=== PATIENT | female | born 1975 | race Asian ===

== ENCOUNTER 2017-01-25 19:55 | Emergency (ER) | payer OTHER ==
[~2017-01-25] VITALS: Ht 157.5 cm; Wt 90.7 kg
[~2017-01-25 19:55] MED LIST: CLOBETASOL0.051 TOP; HYDR-2748 PO; LYRICA150 MG PO; SAVELLA50 MG PO; TRAM50TA PO; ZANAFLEX4 M1 PO
[2017-01-25 21:34] LABS: PLATELET COUNT 220 K/uL (152-353)
[2017-01-25 21:45] LABS: POTASSIUM 3.5 mmol/L (3.6-5.2); SODIUM 131 mmol/L (136-145)
[2017-01-25 22:24] VITALS: BP 131/857
== END 2017-01-25 22:26 | disposition home or self-care (01) ==
LOC: ED 19:55
DX: J01.00 Acute maxillary sinusitis, unspecified (principal)
CPT/HCPCS: 36415; 80053; 85027; 87081; 87804; 87880; 96372; 99283; J0696; J1100

== ENCOUNTER 2017-12-01 09:54 | Emergency (ER) | payer OTHER ==
[~2017-12-01] VITALS: Ht 157.5 cm; Wt 90.3 kg
[2017-12-01 11:00] VITALS: TEMP 98.2
[2017-12-01 12:00] VITALS: BP 136/72
== END 2017-12-01 12:03 | disposition home or self-care (01) ==
LOC: ED 09:54
DX: M62.830 Muscle spasm of back (principal)
CPT/HCPCS: 96372; 99283; J1885; J2360

== ENCOUNTER 2018-05-08 09:12 | Outpatient (CLI) | payer OTHER ==
[~2018-05-08] VITALS: Ht 157.5 cm; Wt 97.5 kg
== END 2018-05-08 19:08 | disposition home or self-care (01) ==
LOC: INF 09:12
DX: D50.8 Other iron deficiency anemias (principal)
CPT/HCPCS: 96365; J2916

== ENCOUNTER 2018-05-14 12:58 | Outpatient (CLI) | payer OTHER ==
[~2018-05-14] VITALS: Ht 157.5 cm; Wt 97.5 kg
== END 2018-05-14 21:24 | disposition home or self-care (01) ==
LOC: INF 12:58
DX: D50.8 Other iron deficiency anemias (principal)
CPT/HCPCS: 96365; J2916

== ENCOUNTER 2018-05-21 09:21 | Outpatient (CLI) | payer OTHER ==
[~2018-05-21] VITALS: Ht 157.5 cm; Wt 97.5 kg
== END 2018-05-21 22:48 | disposition home or self-care (01) ==
LOC: INF 09:21
DX: D50.9 Iron deficiency anemia, unspecified (principal)
CPT/HCPCS: 85014; 85018; 96365; J2916

== ENCOUNTER 2018-05-29 08:45 | Outpatient (CLI) | payer OTHER ==
[~2018-05-29] VITALS: Ht 157.5 cm; Wt 97.5 kg
== END 2018-05-29 19:43 | disposition home or self-care (01) ==
LOC: INF 08:45
DX: D50.8 Other iron deficiency anemias (principal)
CPT/HCPCS: 85014; 85018; 96365; J2916

== ENCOUNTER 2018-06-11 08:43 | Outpatient (CLI) | payer OTHER ==
[~2018-06-11] VITALS: Ht 157.5 cm; Wt 97.5 kg
== END 2018-06-11 23:10 | disposition home or self-care (01) ==
LOC: INF 08:43
DX: D50.8 Other iron deficiency anemias (principal)
CPT/HCPCS: 36591; 85014; 85018; 96365; J2916

== ENCOUNTER 2018-06-25 13:49 | Outpatient (CLI) | payer OTHER ==
[~2018-06-25] VITALS: Ht 157.5 cm; Wt 97.5 kg
== END 2018-06-25 19:33 | disposition home or self-care (01) ==
LOC: INF 13:49
DX: D50.8 Other iron deficiency anemias (principal)
CPT/HCPCS: 36591; 85014; 85018; 96365; J2916

== ENCOUNTER 2018-11-27 15:08 | Outpatient (CLI) | payer OTHER | END 2018-11-27 19:05 | disposition home or self-care (01) | LOC: LABW 15:08 | DX: M25.561 Pain in right knee (principal); H16.223 Keratoconjunctivitis sicca, not specified as Sjogren's, bilateral; M06.4 Inflammatory polyarthropathy; R76.0 Raised antibody titer; Z79.899 Other long term (current) drug therapy | CPT/HCPCS: 36415; 85651; 86140; 86160; 86480; 86704; 86706; 86708; 87350; 87522; 87535; G0432 ==

== ENCOUNTER 2018-12-17 12:47 | Outpatient (CLI) | payer OTHER | END 2018-12-17 20:38 | disposition home or self-care (01) | LOC: INF 12:47 | DX: E86.0 Dehydration (principal) | CPT/HCPCS: 96360; 96361 ==

== ENCOUNTER 2019-05-04 08:39 | Outpatient (CLI) | payer OTHER ==
[~2019-05-04] VITALS: Ht 157.5 cm; Wt 90.3 kg
[2019-05-04 08:48] VITALS: BP 104/70; TEMP 98
== END 2019-05-04 10:37 | disposition home or self-care (01) ==
LOC: INF 08:39
DX: D50.9 Iron deficiency anemia, unspecified (principal); R53.83 Other fatigue
CPT/HCPCS: 96365; J1439

== ENCOUNTER 2019-08-03 11:32 | Outpatient (CLI) | payer OTHER | END 2019-08-03 23:38 | disposition home or self-care (01) | LOC: RAD 11:32 | DX: M17.0 Bilateral primary osteoarthritis of knee (principal); M54.5 Low back pain ==

== ENCOUNTER 2019-11-02 15:59 | Outpatient (CLI) | payer OTHER ==
[2019-11-02 16:29] LABS: PLATELET COUNT 193 K/uL (152-353)
== END 2019-11-02 20:05 | disposition home or self-care (01) ==
LOC: LABW 15:59
PROVIDERS: Specialist
DX: N95.1 Menopausal and female climacteric states (principal); R53.83 Other fatigue
CPT/HCPCS: 36415; 82670; 83001; 83002; 84439; 84443; 85007; 85027

== ENCOUNTER 2019-11-11 18:53 | Emergency (ER) | payer OTHER ==
[~2019-11-11] VITALS: Ht 157.5 cm; Wt 93.4 kg
[2019-11-11 20:31] VITALS: BP 122/89; TEMP 98.1
== END 2019-11-11 20:31 | disposition home or self-care (01) ==
LOC: ED 18:53
DX: J11.1 Influenza due to unidentified influenza virus with other respiratory manifestations (principal); K01.1 Impacted teeth
CPT/HCPCS: 87502; 99282

== ENCOUNTER 2020-01-26 14:26 | Outpatient (CLI) | payer OTHER ==
[~2020-01-26] VITALS: Ht 157.5 cm; Wt 93.4 kg
[2020-01-26 14:30] VITALS: BP 105/62; TEMP 98.6
== END 2020-01-26 16:10 | disposition home or self-care (01) ==
LOC: INF 14:26
DX: D50.9 Iron deficiency anemia, unspecified (principal)
CPT/HCPCS: 96365; J1439

== ENCOUNTER 2020-04-06 10:45 | Outpatient (CLI) | payer OTHER | END 2020-04-06 22:24 | disposition home or self-care (01) | LOC: MAMMO 10:45 | DX: N61.0 Mastitis without abscess (principal) | CPT/HCPCS: G0279 ==

== ENCOUNTER 2020-05-17 17:26 | Outpatient (CLI) | payer OTHER | END 2020-05-17 20:30 | disposition home or self-care (01) | LOC: LAB 17:26 | DX: R92.8 Other abnormal and inconclusive findings on diagnostic imaging of breast (principal) | CPT/HCPCS: 36415; 86316 ==

== ENCOUNTER 2020-05-19 08:50 | Outpatient (CLI) | payer OTHER | END 2020-05-19 23:04 | disposition home or self-care (01) | LOC: CT 08:50 | PROVIDERS: ATTEND Nurse Practitioner Family | DX: K11.8 Other diseases of salivary glands (principal) | CPT/HCPCS: 36415; 82565; 84520; Q9963 ==